=== PATIENT | female | born 1970 | race Caucasian/White ===

== ENCOUNTER 2016-10-03 09:23 | Outpatient (CLI) | payer OTHER ==
--- NOTE | 2016-10-03 21:26 | RAD ---
LEFT KNEE FOUR VIEWS 10/03/16 Comparison is made with a 09/25/16 study. The sunrise view shows a fracture through the medial aspect of the patella. There is very minimal de pression of the medial fragment. Joint fluid is still present but has improved since the prior study . The amount of displacement present is very little. IMPRESSION: Relatively nondisplaced fracture of the patella. POS: HOME
== END 2016-10-03 09:24 | disposition home or self-care (01) ==
LOC: BURRAD 09:23
PROVIDERS: ATTEND Family Medicine
DX: S82.002D Unspecified fracture of left patella, subsequent encounter for closed fracture with routine healing (principal)

== ENCOUNTER 2016-11-20 15:15 | Outpatient (CLI) | payer OTHER ==
[2016-11-20 17:52] LABS: Microalbumin Urine 8.5 mg/dL (0.5-50.0)
== END 2016-11-20 15:16 | disposition home or self-care (01) ==
LOC: HPCALD 15:15
PROVIDERS: ATTEND Family Medicine
DX: E11.9 Type 2 diabetes mellitus without complications (principal)
CPT/HCPCS: 82043

== ENCOUNTER 2017-01-26 09:38 | Emergency (ER) | payer OTHER ==
[2017-01-26] MEDS ORDERED: traMADol HCl 50 MG TAB ONE (11:03)
--- NOTE | 2017-01-26 20:51 | RAD ---
LEFT KNEE 4 VIEWS: Date: 01/26/17 Comparison made with the 10/12/15 study, as well as a 09/25/16 study. FINDINGS: Two of today's views appear to show a vertical line through the medial third of the patella that I p resume to be fracture. The lateral view shows no joint effusion, making it unlikely that this is acu te. Quite honestly, the area is not seen exceptionally well and it may take a MRI or other imaging m odality to prove if there is anything acute here. The lack of joint effusion mitigates against curre nt injury, however. IMPRESSION: Line in the patella that may not be new. See comments above. POS: HOME
== END 2017-01-26 11:06 | disposition home or self-care (01) ==
LOC: BURERS 09:38
DX: S80.02XA Contusion of left knee, initial encounter (principal); S80.01XA Contusion of right knee, initial encounter; E11.9 Type 2 diabetes mellitus without complications; I10 Essential (primary) hypertension; E03.9 Hypothyroidism, unspecified; E78.5 Hyperlipidemia, unspecified; E78.00 Pure hypercholesterolemia, unspecified; J45.909 Unspecified asthma, uncomplicated; F31.9 Bipolar disorder, unspecified; F17.210 Nicotine dependence, cigarettes, uncomplicated; Z79.899 Other long term (current) drug therapy; Z79.84 Long term (current) use of oral hypoglycemic drugs; W01.0XXA Fall on same level from slipping, tripping and stumbling without subsequent striking against object, initial encounter

== ENCOUNTER 2017-04-19 14:19 | Emergency (ER) | payer OTHER ==
[2017-04-19] MEDS ORDERED: Tetracaine HCl 0.5% Ophth Soln 2 ML Bottle ONE (14:28)
[2017-04-19] MEDS ORDERED: Fluorescein Opthalmic Strip ONE (14:28)
== END 2017-04-19 14:45 | disposition home or self-care (01) ==
LOC: BURERS 14:19
DX: H00.014 Hordeolum externum left upper eyelid (principal); Z79.84 Long term (current) use of oral hypoglycemic drugs; Z79.891 Long term (current) use of opiate analgesic; Z79.899 Other long term (current) drug therapy; Z79.2 Long term (current) use of antibiotics
CPT/HCPCS: 36416; 99282

== ENCOUNTER 2017-05-25 11:48 | Emergency (ER) | payer OTHER | END 2017-05-25 12:20 | disposition home or self-care (01) | LOC: BURERS 11:48 | DX: G89.18 Other acute postprocedural pain (principal); M25.562 Pain in left knee; E11.9 Type 2 diabetes mellitus without complications; I10 Essential (primary) hypertension; Z79.899 Other long term (current) drug therapy; Z79.84 Long term (current) use of oral hypoglycemic drugs; Z79.82 Long term (current) use of aspirin | CPT/HCPCS: 99283 ==

== ENCOUNTER 2017-06-16 14:25 | Emergency (ER) | payer OTHER ==
[2017-06-16] MEDS ORDERED: HYDROcodone/Acetaminophen 10/325 mg Tablet ONE (14:46)
--- NOTE | 2017-06-16 17:34 | RAD ---
FOUR VIEWS LEFT KNEE 06/16/17 COMPARISON: 01/26/17 HISTORY: Recent surgery, pain. FINDINGS: Two cannulated lag screws traverse a fracture of the left patella. The inferior screw overlies the f racture lucency. The fracture line is still well seen, extending into the posterior aspect of the pa tella. There is a small knee joint effusion. No dislocation or additional fractures seen. IMPRESSION: Cannulated lag screws associated with left patellar fracture. Nonspecific small knee joint effusion. No additional fracture or evidence of dislocation. POS: [facility]
== END 2017-06-16 15:07 | disposition home or self-care (01) ==
LOC: BURERS 14:25
DX: S81.002A Unspecified open wound, left knee, initial encounter (principal); E11.9 Type 2 diabetes mellitus without complications; E03.9 Hypothyroidism, unspecified; F31.9 Bipolar disorder, unspecified; I10 Essential (primary) hypertension; Z79.84 Long term (current) use of oral hypoglycemic drugs; Z79.899 Other long term (current) drug therapy

== ENCOUNTER 2017-11-18 13:00 | Emergency (ER) | payer OTHER ==
[2017-11-18] MEDS ORDERED: Bacitracin Zinc 1 Packet ONE (13:21)
[2017-11-18] MEDS ORDERED: Fentanyl 100 MCG/2 ML VIAL ONE (13:23)
== END 2017-11-18 13:40 | disposition home or self-care (01) ==
LOC: BURERS 13:00
DX: G89.4 Chronic pain syndrome (principal); M25.562 Pain in left knee; E11.9 Type 2 diabetes mellitus without complications; E03.9 Hypothyroidism, unspecified; I10 Essential (primary) hypertension; J45.909 Unspecified asthma, uncomplicated; F41.9 Anxiety disorder, unspecified; F31.9 Bipolar disorder, unspecified; F17.210 Nicotine dependence, cigarettes, uncomplicated; Z79.899 Other long term (current) drug therapy; Z79.84 Long term (current) use of oral hypoglycemic drugs
CPT/HCPCS: 96372; J3010

== ENCOUNTER 2017-12-05 08:08 | Outpatient (CLI) | payer OTHER ==
--- NOTE | 2017-12-05 22:36 | ULT ---
RIGHT UPPER QUADRANT ULTRASOUND 12/05/17 Ultrasonography of the right upper quadrant was performed for evaluation of abnormal liver function t ests. The liver is slightly large at 16.8 cm in oblique sagittal length. Internally, no masses, or dilated ducts were seen. The gallbladder has been surgically removed. There is no sign of stones or wall thic kening. The common bile duct is 8 mm wide which is normal for a post cholecystectomy patient. The rig ht kidney is 9.7 cm long and appears normal. The pancreas was largely obscured by gas, but the visibl e areas appear normal. IMPRESSION: No acute right upper quadrant findings. Hepatic size is borderline large. POS: HOME
== END 2017-12-05 08:09 | disposition home or self-care (01) ==
LOC: BURULT 08:08
PROVIDERS: ATTEND Family Medicine
DX: R74.8 Abnormal levels of other serum enzymes (principal); R16.0 Hepatomegaly, not elsewhere classified
CPT/HCPCS: 76705

== ENCOUNTER 2017-12-29 09:32 | Emergency (ER) | payer OTHER ==
--- NOTE | 2017-12-29 11:33 | RAD ---
LEFT KNEE 4 VIEWS: DATE: 12/29/17. FINDINGS: Comparison is made with a 06/16 17 study. In the interval, the lower screw that was placed in a patellar fracture has been removed and the lowe r pole of the patella is now retracted inferiorly. There is a small joint effusion today. The dista l femur and proximal tibia/fibula appear intact. Joint space is normal. IMPRESSION: Patient with known prior patellar fracture now with separation of the lower pole of the patella from the remainder and absence of the lower orthopedic screw that was present previously. I assume there has been a procedure between the 2017 study and now. Other than this finding, I see no other acute c hanges, except for a small joint effusion. POS: HOME
== END 2017-12-29 10:43 | disposition home or self-care (01) ==
LOC: BURERS 09:32
DX: M25.561 Pain in right knee (principal); R47.81 Slurred speech; E11.9 Type 2 diabetes mellitus without complications; E03.9 Hypothyroidism, unspecified; I10 Essential (primary) hypertension; J45.909 Unspecified asthma, uncomplicated; F41.9 Anxiety disorder, unspecified; F31.9 Bipolar disorder, unspecified; F17.210 Nicotine dependence, cigarettes, uncomplicated; Z79.84 Long term (current) use of oral hypoglycemic drugs; Z79.899 Other long term (current) drug therapy

== ENCOUNTER 2018-01-09 10:43 | Emergency (ER) | payer OTHER ==
[2018-01-09] MEDS ORDERED: Acetaminophen 500 MG TAB ONE (10:56)
== END 2018-01-09 11:00 | disposition home or self-care (01) ==
LOC: BURERS 10:43
DX: G89.29 Other chronic pain (principal); M25.562 Pain in left knee; E11.9 Type 2 diabetes mellitus without complications; E03.9 Hypothyroidism, unspecified; I10 Essential (primary) hypertension; J45.909 Unspecified asthma, uncomplicated; F41.9 Anxiety disorder, unspecified; F31.9 Bipolar disorder, unspecified; F17.210 Nicotine dependence, cigarettes, uncomplicated
CPT/HCPCS: 99283

== ENCOUNTER 2018-01-12 10:32 | Emergency (ER) | payer OTHER ==
[2018-01-12] MEDS ORDERED: Acetaminophen 500 MG TAB ONE (11:04)
[2018-01-12] MEDS ORDERED: traMADol HCl 50 MG TAB ONE (11:28)
--- NOTE | 2018-01-12 13:09 | RAD ---
SACRUM AND COCCYX: DATE: 01/12/18. FINDINGS: Three views show no evidence of fracture. Arcuate lines of the sacrum appear intact and the SI joint s are symmetrical. The coccyx appears in normal position on the lateral view. IMPRESSION: No acute finding. POS: HOME
== END 2018-01-12 11:42 | disposition home or self-care (01) ==
LOC: BURERS 10:32
DX: S30.0XXA Contusion of lower back and pelvis, initial encounter (principal); E11.9 Type 2 diabetes mellitus without complications; E03.9 Hypothyroidism, unspecified; I10 Essential (primary) hypertension; J45.909 Unspecified asthma, uncomplicated; F41.9 Anxiety disorder, unspecified; F31.9 Bipolar disorder, unspecified; F17.210 Nicotine dependence, cigarettes, uncomplicated; W19.XXXA Unspecified fall, initial encounter
CPT/HCPCS: 72220

== ENCOUNTER 2018-07-07 14:11 | Emergency (ER) | payer OTHER | END 2018-07-07 15:25 | disposition home or self-care (01) | LOC: BURERS 14:11 | DX: G89.29 Other chronic pain (principal); M54.5 Low back pain; E11.9 Type 2 diabetes mellitus without complications; E03.9 Hypothyroidism, unspecified; I10 Essential (primary) hypertension; J45.909 Unspecified asthma, uncomplicated; F41.9 Anxiety disorder, unspecified; F31.9 Bipolar disorder, unspecified; F43.10 Post-traumatic stress disorder, unspecified; F17.210 Nicotine dependence, cigarettes, uncomplicated; Z79.899 Other long term (current) drug therapy; Z79.84 Long term (current) use of oral hypoglycemic drugs | CPT/HCPCS: 99283 ==

== ENCOUNTER 2018-08-03 10:34 | Emergency (ER) | payer OTHER | END 2018-08-03 11:07 | disposition home or self-care (01) | LOC: BURERS 10:34 | DX: K04.7 Periapical abscess without sinus (principal); K02.9 Dental caries, unspecified; E11.9 Type 2 diabetes mellitus without complications; E03.9 Hypothyroidism, unspecified; I10 Essential (primary) hypertension; F31.9 Bipolar disorder, unspecified; J45.909 Unspecified asthma, uncomplicated; F41.9 Anxiety disorder, unspecified; F43.10 Post-traumatic stress disorder, unspecified; F17.210 Nicotine dependence, cigarettes, uncomplicated; Z79.899 Other long term (current) drug therapy; Z79.84 Long term (current) use of oral hypoglycemic drugs | CPT/HCPCS: 99282 ==

== ENCOUNTER 2018-08-18 08:03 | Emergency (ER) | payer OTHER ==
[2018-08-18 09:13] LABS: #Basophils 0.2 thou/uL (0.0-0.2); #Eosinphils 0.2 thou/uL (0.0-0.7); #Lymphocytes 3.9 thou/uL (1.20-3.40); #Monocytes 0.7 thou/uL (0.11-0.59); #Neutrophils 9.9 thou/uL (1.40-6.50); %Basophils 1.5 % (0.0-1.0); %Eosinophils 1.1 % (0.0-10.0); %Lymphocytes 26.5 % (21.0-51.0); %Monocytes 4.5 % (0.0-10.0); %Neutrophils 66.4 % (42.0-75.0); Hemoglobin 12.9 g/dL (12.0-16.0); Mean Corpuscular HGB CONC 33.2 g/dL (32.0-36.0); Mean Corpuscular Hemoglobin 27.1 pg (27.0-31.0); Mean Corpuscular Volume 81.5 fL (78.0-98.0); Mean Platelet Volume 7.8 fL (7.4-10.4); Platelet Count 365 thou/uL (130-400); RBC Distribution Width 11.5 % (11.5-14.5); Red Blood Cell (RBC) Count 4.75 mill/uL (4.20-5.40); White Blood Cell (WBC) Count 14.9 thou/uL (4.8-10.8)
[2018-08-18 09:25] LABS: ALT (SGPT) 25 U/L (8-55); AST (SGOT) 11 U/L (5-34); Albumin 4.5 g/dL (3.5-5.0); Alkaline Phosphatase 153 U/L (40-150); Anion Gap 17 mmol/L (10-20); BUN (Urea Nitrogen) 28 mg/dL (7.0-18.7); Bilirubin, Total 0.2 mg/dL (0.2-1.2); Calc. Creatinine Clearance 0 mL/min (70-130); Calcium 9.5 mg/dL (7.8-10.44); Carbon Dioxide 24 mmol/L (22-29); Chloride 98 mmol/L (98-107); Estimated GFR-MDRD 72; Globulin 3.4 g/dL (2.4-3.5); Glucose 253 mg/dL (70-105); Potassium 4.2 mmol/L (3.5-5.1); Protein, Total 7.9 g/dL (6.0-8.3); Sodium 135 mmol/L (136-145)
[2018-08-18] MEDS ORDERED: Benzonatate 100 MG CAP ONE (09:29)
--- NOTE | 2018-08-18 10:24 | RAD ---
RADIOGRAPH CHEST 2 VIEWS: HISTORY: 47-year-old female with cough and dyspnea. FINDINGS: There is no air space density, pulmonary edema, pleural effusion, pneumothorax, or cardiomegaly. IMPRESSION: No acute cardiopulmonary findings. jn [] POS: [facility]
== END 2018-08-18 09:50 | disposition home or self-care (01) ==
LOC: BURERS 08:03
DX: J06.9 Acute upper respiratory infection, unspecified (principal); J44.1 Chronic obstructive pulmonary disease with (acute) exacerbation; E03.9 Hypothyroidism, unspecified; E11.9 Type 2 diabetes mellitus without complications; I10 Essential (primary) hypertension; F31.9 Bipolar disorder, unspecified; F90.9 Attention-deficit hyperactivity disorder, unspecified type; F41.9 Anxiety disorder, unspecified; F17.210 Nicotine dependence, cigarettes, uncomplicated; Z79.899 Other long term (current) drug therapy; Z79.84 Long term (current) use of oral hypoglycemic drugs
CPT/HCPCS: 71046; 80053; 85025; 93005; 94640; J7620

== ENCOUNTER 2018-10-31 11:21 | Emergency (ER) | payer OTHER ==
[2018-10-31] MEDS ORDERED: Bupivacaine 0.5% 10 ML VIAL ONE (11:36)
== END 2018-10-31 11:50 | disposition home or self-care (01) ==
LOC: BURERS 11:21
DX: K08.89 Other specified disorders of teeth and supporting structures (principal); E11.9 Type 2 diabetes mellitus without complications; E03.9 Hypothyroidism, unspecified; J45.909 Unspecified asthma, uncomplicated; F31.9 Bipolar disorder, unspecified; F43.10 Post-traumatic stress disorder, unspecified; F41.9 Anxiety disorder, unspecified; Z79.899 Other long term (current) drug therapy; Z79.84 Long term (current) use of oral hypoglycemic drugs
CPT/HCPCS: 99282; J3490

== ENCOUNTER 2018-11-18 09:52 | Emergency (ER) | payer OTHER ==
[2018-11-18] MEDS ORDERED: Ibuprofen 200 MG TAB ONE (10:08)
== END 2018-11-18 10:12 | disposition home or self-care (01) ==
LOC: BURERS 09:52
DX: L03.116 Cellulitis of left lower limb (principal); E11.9 Type 2 diabetes mellitus without complications; E03.9 Hypothyroidism, unspecified; I10 Essential (primary) hypertension; F31.9 Bipolar disorder, unspecified; F41.9 Anxiety disorder, unspecified; F43.10 Post-traumatic stress disorder, unspecified; J45.909 Unspecified asthma, uncomplicated; F17.210 Nicotine dependence, cigarettes, uncomplicated; Z79.84 Long term (current) use of oral hypoglycemic drugs; Z79.899 Other long term (current) drug therapy
CPT/HCPCS: 99283

== ENCOUNTER 2018-11-21 10:19 | Emergency (ER) | payer OTHER ==
[2018-11-21] MEDS ORDERED: Ketorolac Tromethamine 30 MG/ML VIAL ONE (11:13)
--- NOTE | 2018-11-21 19:47 | CT ---
CT OF THE LUMBAR SPINE 11/21/[address] of the lumbar spine was performed for evaluation following trauma. No fracture or dislocation was seen at any lumbar level. All bones appeared intact. There is some vac uum phenomenon in the SI joints bilaterally. The sacrum appears intact. There is a diffuse concentric bulb to the L5-S1 disc. No focal herniation was seen. At L4-L5, there i s also a generalized bulge of this disc. It may be a little more focal in the right lateral position. I am unsure if this finding is significant, but if the patient had a right L4 radiculopathy, then th e finding would take on more meaning. IMPRESSION: 1. No evidence of fracture. 2. Diffuse bulge of the L5-S1 disc, present on an older MRI. 3. Diffuse bulging of the L4-L5 disc with question of some right lateral prominence of the disc. If the patient had a right L4 radiculopathy, then other studies (MRI) might be needed to assess if t here is any neural impingement. . POS: HOME
== END 2018-11-21 11:23 | disposition home or self-care (01) ==
LOC: BURERS 10:19
DX: M47.9 Spondylosis, unspecified (principal); E11.9 Type 2 diabetes mellitus without complications; E03.9 Hypothyroidism, unspecified; I10 Essential (primary) hypertension; J45.909 Unspecified asthma, uncomplicated; F41.9 Anxiety disorder, unspecified; F31.9 Bipolar disorder, unspecified; F43.10 Post-traumatic stress disorder, unspecified; F17.210 Nicotine dependence, cigarettes, uncomplicated; Z79.899 Other long term (current) drug therapy; Z79.84 Long term (current) use of oral hypoglycemic drugs; Z79.51 Long term (current) use of inhaled steroids; W17.89XA Other fall from one level to another, initial encounter
CPT/HCPCS: 72131; 96372; J1885

== ENCOUNTER 2019-01-27 15:48 | Emergency (ER) | payer OTHER | END 2019-01-27 16:11 | disposition home or self-care (01) | LOC: BURERS 15:48 | DX: S91.205A Unspecified open wound of left lesser toe(s) with damage to nail, initial encounter (principal); E11.9 Type 2 diabetes mellitus without complications; E03.9 Hypothyroidism, unspecified; I10 Essential (primary) hypertension; J45.909 Unspecified asthma, uncomplicated; F17.210 Nicotine dependence, cigarettes, uncomplicated; F41.9 Anxiety disorder, unspecified; F31.9 Bipolar disorder, unspecified; F43.10 Post-traumatic stress disorder, unspecified; W22.8XXA Striking against or struck by other objects, initial encounter | CPT/HCPCS: 99281 ==

== ENCOUNTER 2019-08-24 12:58 | Emergency (ER) | payer OTHER ==
[2019-08-24] MEDS ORDERED: Acetaminophen/Codeine 30-300mg Tablet ONE (13:43)
--- NOTE | 2019-08-24 18:38 | RAD ---
LEFT ANKLE 3 VIEWS: Date: 08/24/19 There is marked soft tissue swelling. A cortical avulsion is seen at the tip of the lateral malleolus . Additionally, there is avulsion from the medial aspect of the talus, probably where the deltoid lig ament is attached. There may be some tiny cortical avulsions from the posterior part of the talus, bu t this is less sure. IMPRESSION: Cortical avulsions from both the tip of the lateral malleolus and from the medial aspect of the talus . CODE T. POS: HOME
--- NOTE | 2019-08-24 18:38 | RAD ---
LEFT FOOT 3 VIEWS: Date: 08/24/19 Comparison is made with an 08/03/16 study. The old fracture of the fifth metatarsal has healed. No acute fractures were seen in the foot itself. A tiny calcaneal spur was present. IMPRESSION: Old findings, but no acute foot fractures. POS: HOME
== END 2019-08-24 13:45 | disposition home or self-care (01) ==
LOC: BURERS 12:58
DX: S82.62XA Displaced fracture of lateral malleolus of left fibula, initial encounter for closed fracture (principal); S93.402A Sprain of unspecified ligament of left ankle, initial encounter; S93.602A Unspecified sprain of left foot, initial encounter; E11.9 Type 2 diabetes mellitus without complications; E03.9 Hypothyroidism, unspecified; I10 Essential (primary) hypertension; J45.909 Unspecified asthma, uncomplicated; F31.9 Bipolar disorder, unspecified; F41.9 Anxiety disorder, unspecified; F17.210 Nicotine dependence, cigarettes, uncomplicated; Z79.899 Other long term (current) drug therapy; Z79.84 Long term (current) use of oral hypoglycemic drugs; X50.1XXA Overexertion from prolonged static or awkward postures, initial encounter

== ENCOUNTER 2019-11-30 08:25 | Emergency (ER) | payer OTHER | END 2019-11-30 08:47 | disposition home or self-care (01) | LOC: BURERS 08:25 | DX: M25.561 Pain in right knee (principal); W22.8XXA Striking against or struck by other objects, initial encounter | CPT/HCPCS: 99281 ==

== ENCOUNTER 2020-06-01 08:16 | Emergency (ER) | payer OTHER ==
[2020-06-01] MEDS ORDERED: Ketorolac Tromethamine 30 MG/ML VIAL ONE (09:40)
--- NOTE | 2020-06-01 13:06 | RAD ---
RIGHT KNEE 4 VIEWS: DATE: 06/01/2020. FINDINGS: Comparison is made with the 01/24/2017 study. No fracture, dislocation, or joint effusion was seen. The joint space and articular surfaces appear normal. IMPRESSION: No acute findings. POS: HOME
== END 2020-06-01 09:45 | disposition home or self-care (01) ==
LOC: BURERS 08:16
DX: G89.4 Chronic pain syndrome (principal); M25.561 Pain in right knee; S80.212D Abrasion, left knee, subsequent encounter; W01.0XXD Fall on same level from slipping, tripping and stumbling without subsequent striking against object, subsequent encounter
CPT/HCPCS: 96372; J1885

== ENCOUNTER 2020-08-22 13:48 | Emergency (ER) | payer OTHER ==
[2020-08-22] MEDS ORDERED: Cephalexin 250 MG CAP ONE (15:04)
[2020-08-22] MEDS ORDERED: Sulfameth/Trimethoprim DS 800-160mg TAB ONE (15:04)
== END 2020-08-22 15:08 | disposition home or self-care (01) ==
LOC: BURERS 13:48
DX: L03.114 Cellulitis of left upper limb (principal); E11.9 Type 2 diabetes mellitus without complications; I10 Essential (primary) hypertension; F17.210 Nicotine dependence, cigarettes, uncomplicated; Z79.899 Other long term (current) drug therapy; Z79.84 Long term (current) use of oral hypoglycemic drugs
CPT/HCPCS: 99283

== ENCOUNTER 2020-10-04 03:46 | Emergency (ER) | payer OTHER ==
[2020-10-04] MEDS ORDERED: HYDROcodone/Acetaminophen 10/325 mg Tablet ONE (04:07)
[2020-10-04] MEDS ORDERED: AMOXicillin 250 MG CAP ONE (04:08)
== END 2020-10-04 04:15 | disposition home or self-care (01) ==
LOC: BURERS 03:46
DX: K08.89 Other specified disorders of teeth and supporting structures (principal); R51.9 Headache, unspecified; Z79.899 Other long term (current) drug therapy; Z79.84 Long term (current) use of oral hypoglycemic drugs; E11.9 Type 2 diabetes mellitus without complications; J45.909 Unspecified asthma, uncomplicated; I10 Essential (primary) hypertension; E03.9 Hypothyroidism, unspecified; F17.210 Nicotine dependence, cigarettes, uncomplicated
CPT/HCPCS: 99283

== ENCOUNTER 2020-10-29 09:52 | Emergency (ER) | payer OTHER ==
[2020-10-29 10:23] LABS: #Basophils 0.2 thou/uL (0.0-0.2); #Eosinphils 0.3 thou/uL (0.0-0.7); #Lymphocytes 3.5 thou/uL (1.20-3.40); #Monocytes 0.4 thou/uL (0.11-0.59); #Neutrophils 4.6 thou/uL (1.40-6.50); %Basophils 1.9 % (0.0-1.0); %Eosinophils 3.3 % (0.0-10.0); %Lymphocytes 38.8 % (21.0-51.0); %Monocytes 4.8 % (0.0-10.0); %Neutrophils 51.2 % (42.0-75.0); Hemoglobin 16.2 g/dL (12.0-16.0); Mean Corpuscular HGB CONC 31.1 g/dL (32.0-36.0); Mean Corpuscular Hemoglobin 28.7 pg (27.0-31.0); Mean Platelet Volume 9.5 fL (7.4-10.4); Platelet Count 291 thou/uL (130-400); RBC Distribution Width 12.6 % (11.5-14.5); Red Blood Cell (RBC) Count 5.66 mill/uL (4.20-5.40); White Blood Cell (WBC) Count 8.9 thou/uL (4.8-10.8)
[2020-10-29 10:36] LABS: Base Excess-Venous -1.6 mmol/L (-2.0 to 3.0); Bicarbonate (HCO3v) 25.7 mmol/L (22.0-28.0); CO2 Tension (PvCO2) 51.4 mmHg (40.0-50.0); Calcium, Ionized 1.13 mmol/L (1.15-1.33); Chloride 93 mmol/L (98-107); Hemoglobin - Calc 18.3 g/dL (12.0-16.0); Potassium 4.6 mmol/L (3.5-5.1); Sodium 129 mmol/L (138-145); T. Carbon Dioxide 27.3 mmol/L (22.0-28.0); vO2 Saturation-calc 58.8 % (60.0-85.0)
[2020-10-29] MEDS ORDERED: Insulin Regular 300 UNITS/3 ML VIAL ONE (10:36)
[2020-10-29 10:46] LABS: ALT (SGPT) 16 U/L (8-55); AST (SGOT) 8 U/L (5-34); Albumin 4.5 g/dL (3.5-5.0); Alkaline Phosphatase 211 U/L (40-110); Anion Gap 19 mmol/L (10-20); BUN (Urea Nitrogen) 23 mg/dL (7.0-18.7); Bilirubin, Total 0.2 mg/dL (0.2-1.2); Calc. Creatinine Clearance 0 mL/min (70-130); Calcium 9.5 mg/dL (7.8-10.44); Carbon Dioxide 23 mmol/L (22-29); Chloride 91 mmol/L (98-107); Potassium 4.4 mmol/L (3.5-5.1); Protein, Total 7.5 g/dL (6.0-8.3); Sodium 129 mmol/L (136-145)
[2020-10-29 10:52] LABS: Glucose 729 mg/dL (70-105)
[2020-10-29 12:45] LABS: Base Excess-Venous -3.9 mmol/L (-2.0 to 3.0); CO2 Tension (PvCO2) 47.8 mmHg (40.0-50.0); Chloride 102 mmol/L (98-107); Hemoglobin - Calc 15.8 g/dL (12.0-16.0); Sodium 136 mmol/L (138-145); T. Carbon Dioxide 24.5 mmol/L (22.0-28.0); vO2 Saturation-calc 86.8 % (60.0-85.0)
[2020-10-29 12:51] LABS: Anion Gap 15 mmol/L (10-20); BUN (Urea Nitrogen) 20 mg/dL (7.0-18.7); Calc. Creatinine Clearance 0 mL/min (70-130); Calcium 8.6 mg/dL (7.8-10.44); Carbon Dioxide 21 mmol/L (22-29); Chloride 103 mmol/L (98-107); Glucose 342 mg/dL (70-105); Sodium 135 mmol/L (136-145)
--- NOTE | 2020-10-29 16:57 | RAD ---
PORTABLE CHEST: 10/29/20 An AP portable film at 1038 is compared with an 08/18/18 study. The heat is normal in size. There is no vascular congestion, edema or pleural effusion. The lungs are clear. There is a large calcified granuloma in the left lung base which was there previously. There is some faint calcification in the aortic arch. IMPRESSION: No acute thoracic finding. POS: HOME
== END 2020-10-29 13:27 | disposition home or self-care (01) ==
LOC: BURERS 09:52
DX: E11.65 Type 2 diabetes mellitus with hyperglycemia (principal); J45.909 Unspecified asthma, uncomplicated; I10 Essential (primary) hypertension; E03.9 Hypothyroidism, unspecified; F17.210 Nicotine dependence, cigarettes, uncomplicated
CPT/HCPCS: 36415; 36416; 71045; 80053; 82330; 82803; 83605; 84484; 85025; 93005; 96374; J1815

== ENCOUNTER 2020-11-27 12:08 | Observation (INO) | payer OTHER ==
--- NOTE | 2020-11-27 13:01 | RAD ---
EXAM: CHEST ONE VIEW HISTORY: Shortness of breath COMPARISON: 10/29/2020 FINDINGS: The cardiac silhouette and pulmonary vasculature are within normal limits. Calcified granuloma left l candi base is again seen. Lungs are otherwise clear. Chest is stable compared to the prior exam. IMPRESSION: No acute cardiopulmonary process.
[2020-11-27] MEDS ORDERED: Albuterol Sulfate 1.25 MG/3 ML NEB ONE (13:04)
[2020-11-27] MEDS ORDERED: Ipratropium Bromide 2.5 ml Neb ONE ×2 (13:04→13:08)
[2020-11-27] MEDS ORDERED: Albuterol Sulfate 2.5 mg/0.5 ml Neb ONE (13:04)
[2020-11-27] MEDS ORDERED: Magnesium 2 GM/50 ML BAG (IN WATER) ONE (13:18)
[2020-11-27 13:32] LABS: #Basophils 0.2 thou/uL (0.0-0.2); #Eosinphils 0.2 thou/uL (0.0-0.7); #Lymphocytes 3.2 thou/uL (1.20-3.40); #Monocytes 0.4 thou/uL (0.11-0.59); #Neutrophils 4.7 thou/uL (1.40-6.50); %Basophils 2.2 % (0.0-1.0); %Eosinophils 2.2 % (0.0-10.0); %Monocytes 4.7 % (0.0-10.0); %Neutrophils 53.9 % (42.0-75.0); Hemoglobin 14.9 g/dL (12.0-16.0); Mean Corpuscular HGB CONC 31.8 g/dL (32.0-36.0); Mean Corpuscular Hemoglobin 28.2 pg (27.0-31.0); Mean Corpuscular Volume 88.9 fL (78.0-98.0); Mean Platelet Volume 9.3 fL (7.4-10.4); Platelet Count 333 thou/uL (130-400); RBC Distribution Width 12.1 % (11.5-14.5); Red Blood Cell (RBC) Count 5.28 mill/uL (4.20-5.40); White Blood Cell (WBC) Count 8.7 thou/uL (4.8-10.8)
[2020-11-27 13:49] LABS: ALT (SGPT) 21 U/L (8-55); Albumin 4.6 g/dL (3.5-5.0); Alkaline Phosphatase 202 U/L (40-110); Anion Gap 19 mmol/L (10-20); BUN (Urea Nitrogen) 22 mg/dL (9.8-20.1); Bilirubin, Total Less than 0.2 mg/dL (0.2-1.2); Calc. Creatinine Clearance 0 mL/min (70-130); Calcium 9.6 mg/dL (7.8-10.44); Carbon Dioxide 21 mmol/L (22-29); Chloride 94 mmol/L (98-107); Globulin 3.6 g/dL (2.4-3.5); Glucose 508 mg/dL (70-105); Potassium 3.9 mmol/L (3.5-5.1); Protein, Total 8.2 g/dL (6.0-8.3); Sodium 130 mmol/L (136-145)
[2020-11-27 14:08] LABS: AST (SGOT) 10 U/L (5-34)
[2020-11-27] MEDS ORDERED: Insulin Regular 300 UNITS/3 ML VIAL ONE (14:43)
[2020-11-27] MEDS ORDERED: cefTRIAXone\\ROCEPHIN 2 GM VIAL ONE (14:43)
[2020-11-27] MEDS ORDERED: Azithromycin 500 MG VIAL ONE (14:43)
[2020-11-27] MEDS ORDERED: methylPREDNISolone Sod Succ/PF 125 MG/2 ML VIAL ONE (15:16)
[2020-11-27 16:02] LABS: SARS-CoV-2 NAA Rapid Test Not Detected (NotDetected)
[2020-11-27] MEDS ORDERED: Insulin Regular 300 UNITS/3 ML VIAL SC PRN (17:00)
[2020-11-27] MEDS ORDERED: Dextrose 50% Abboject 50 ML SYRINGE IVP PRN ×2 (17:00→21:45)
[2020-11-27] MEDS ORDERED: Ondansetron PF 4 MG/2 ML Vial IVP PRN (17:00)
[2020-11-27] MEDS ORDERED: cefTRIAXone\\ROCEPHIN 2 GM in Sodium Chloride 0.9% 100 ML IVPB SCH ×2 (17:00→20:00)
[2020-11-27] MEDS ORDERED: Ondansetron ODT 4 MG TAB SL PRN (17:00)
[2020-11-27] MEDS ORDERED: Dextrose 5% in Water 1,000 ML IV PRN ×2 (17:00→21:45)
[2020-11-27] MEDS ORDERED: Albuterol Sulfate 2.5 mg/3 ml Neb NEB PRN (17:04)
[2020-11-27] MEDS ORDERED: Bacteriostatic Water 30 ML VIAL FS PRN (17:15)
[2020-11-27] MEDS: Sodium Chloride 0.9% 1,000 ML IV SCH (17:57)
[2020-11-27] MEDS ORDERED: Azithromycin 500 MG in Sodium Chloride 0.9% 250 ML 250 ML IVPB SCH (18:00)
[2020-11-27] MEDS ORDERED: methylPREDNISolone Sod Succ 40 MG VIAL IVP SCH (18:00)
[2020-11-27] MEDS ORDERED: Atorvastatin Calcium 10 MG TAB PO SCH (21:30)
[2020-11-27] MEDS ORDERED: Albuterol 200 PUFF (6.7GM INHALER) INH SCH (21:30)
[2020-11-27] MEDS ORDERED: clonazePAM 0.5 MG TAB PO SCH (21:30)
[2020-11-27] MEDS ORDERED: Gabapentin 300 MG CAP PO SCH (21:30)
[2020-11-27] MEDS ORDERED: OXcarbazepine 150 MG TAB PO SCH (21:45)
[2020-11-27] MEDS ORDERED: Mometasone/Formoterol 200/5 60 PUFF INH SCH (21:45)
[2020-11-27] MEDS ORDERED: cloNIDine 0.1 MG TAB PO SCH (21:45)
[2020-11-27] MEDS ORDERED: Aripiprazole 10 MG TAB PO SCH (21:45)
[2020-11-27] MEDS ORDERED: HumaLOG 300 UNITS/3 ML VIAL SC PRN (21:45)
[2020-11-27] MEDS: methylPREDNISolone Sod Succ 40 MG VIAL IVP SCH (23:02)
[2020-11-28] MEDS: Sodium Chloride 0.9% 1,000 ML IV SCH (01:00)
[2020-11-28 05:23] LABS: #Basophils 0.1 thou/uL (0.0-0.2); #Lymphocytes 1.6 thou/uL (1.20-3.40); #Monocytes 0.2 thou/uL (0.11-0.59); #Neutrophils 7.6 thou/uL (1.40-6.50); %Basophils 0.8 % (0.0-1.0); %Lymphocytes 17.2 % (21.0-51.0); %Monocytes 1.9 % (0.0-10.0); %Neutrophils 80.1 % (42.0-75.0); Hemoglobin 14.1 g/dL (12.0-16.0); Mean Corpuscular HGB CONC 31.9 g/dL (32.0-36.0); Mean Corpuscular Hemoglobin 28.4 pg (27.0-31.0); Mean Platelet Volume 9.9 fL (7.4-10.4); Platelet Count 339 thou/uL (130-400); RBC Distribution Width 12.3 % (11.5-14.5); Red Blood Cell (RBC) Count 4.95 mill/uL (4.20-5.40); White Blood Cell (WBC) Count 9.4 thou/uL (4.8-10.8)
[2020-11-28 05:28] LABS: ALT (SGPT) 20 U/L (8-55); AST (SGOT) 10 U/L (5-34); Alkaline Phosphatase 157 U/L (40-110); Anion Gap 17 mmol/L (10-20); BUN (Urea Nitrogen) 17 mg/dL (9.8-20.1); Bilirubin, Total Less than 0.2 mg/dL (0.2-1.2); Calc. Creatinine Clearance 0 mL/min (70-130); Calcium 8.8 mg/dL (7.8-10.44); Carbon Dioxide 20 mmol/L (22-29); Chloride 103 mmol/L (98-107); Glucose 320 mg/dL (70-105); Potassium 4.7 mmol/L (3.5-5.1); Sodium 135 mmol/L (136-145)
[2020-11-28] MEDS ORDERED: Levothyroxine Sodium 50 MCG TAB PO SCH (06:00)
[2020-11-28] MEDS ORDERED: tiZANidine HCl 4 MG TAB PO PRN (08:53)
[2020-11-28] MEDS ORDERED: Montelukast Sodium 10 mg Tablet PO SCH (09:00)
[2020-11-28] MEDS ORDERED: Lantus 1000 UNITS/10 ML VIAL SC SCH (09:00)
[2020-11-28] MEDS ORDERED: Albuterol 200 PUFF (6.7GM INHALER) INH SCH ×2 (09:00→21:00)
[2020-11-28] MEDS ORDERED: Gabapentin 300 MG CAP PO SCH ×2 (09:00)
[2020-11-28] MEDS ORDERED: PARoxetine 20 MG TAB PO SCH (09:00)
[2020-11-28] MEDS ORDERED: Aripiprazole 10 MG TAB PO SCH ×3 (09:00→21:00)
[2020-11-28] MEDS ORDERED: Mometasone/Formoterol 200/5 60 PUFF INH SCH ×2 (09:00)
[2020-11-28] MEDS ORDERED: Lisinopril 10 MG TAB PO SCH (09:00)
[2020-11-28] MEDS ORDERED: FLU VACC QS2020-21(6MOS UP)/PF 60 MCG/0.5 ML SYRINGE IM ONE (09:00)
[2020-11-28] MEDS: HumaLOG 300 UNITS/3 ML VIAL SC PRN ×2 (09:45→11:56)
[2020-11-28] MEDS: methylPREDNISolone Sod Succ 40 MG VIAL IVP SCH (09:49)
--- NOTE | 2020-11-28 09:53 | PDOC.HHP ---
Hospitalist HPI dyspnea, wheezing History of Present Illness: 50 y/o F chronic smoker with underlying h/o COPD presented to the [facility] ED with c/o dyspnea and wheezing not relieved by home medications. She reported her nebulizer machine to be broken and thus was using her rescue inhaler with frequency; however, did not improve which prompted her ED evaluation. She denies being on a controller medication for her COPD. In the ED she received Solu Medrol, mag sulfate and neb treatments, but remained tachypneic, thus it has be en decided to admit under observation status for further steroids, neb treatments and supplemental oxygen should it be needed. She also had a glucose level of greater than 500 in the ED; she is on basal insulin at 20 units at home; however, states she forgets to take this at times. Allergies/Adverse Reactions: Allergy/AdvReac Type Severity Reaction Status Date / Time celecoxib [From Celebrex] Allergy Mild Verified 11/27/20 18:50 rofecoxib [From Vioxx] Allergy Mild Stomach Verified 11/27/20 18:50 Ache valdecoxib [From Bextra] Allergy Mild Stomach Verified 11/27/20 18:50 Ache Home Medications: Medication Instructions Recorded Confirmed Type Esomeprazole Magnesium [NexIUM] 40 mg PO DAILY 11/03/13 11/27/20 History Gabapentin 600 mg PO TID 11/03/13 11/27/20 History Levothyroxine Sodium [Synthroid] 50 mcg PO DAILY 11/03/13 11/27/20 History Lisinopril 10 mg PO DAILY 11/03/13 11/27/20 History Montelukast Sodium [Singulair] 10 mg PO QAM 11/03/13 11/27/20 History OXcarbazepine [Trileptal] 1,500 mg PO HS 11/03/13 11/27/20 History Ventolin HFA Inhaler 2 puff INH BID 11/03/13 11/27/20 History hydrOXYzine [Atarax] 100 mg PO HS 11/03/13 11/27/20 History ARIPiprazole [Aripiprazole] 1 tab PO HS 05/17/17 11/27/20 History Atorvastatin Calcium [Lipitor] 20 mg PO HS 05/17/17 11/27/20 History Mometasone/Formoterol 200/5 2 puff INH BID 05/17/17 11/27/20 History [Dulera 200 Mcg/5 Mcg Inhaler] PARoxetine HCl 60 mg PO QAM 05/17/17 11/27/20 History metFORMIN [Glucophage] 1,000 mg PO BID-WM 05/17/17 11/27/20 History tiZANidine HCl [Tizanidine HCl] 1 tab PO TID PRN 05/17/17 11/27/20 History clonazePAM 1 tab PO HS 01/22/18 11/27/20 History cloNIDine [Catapres] 0.1 mg PO HS 11/27/20 11/27/20 History Past History: PMx: COPD, HTN, Hypothyroidism, bipolar disorder Surg Hx: splenectomy, cholecystectomy; left knee Social Hx: chronic smoker; denies EtOH or illicit drug use Hospitalist HPI ROS Constitutional: denies: fever, chills, sweats, weakness, malaise, other Eyes: denies: pain, vision change, conjunctivae inflammation, eyelid inflammation, redness, other ENT: denies: ear pain, ear discharge, nose pain, nose discharge, nose congestion, mouth pain, mouth swelling, throat pain, throat swelling, other Respiratory: reports: cough, shortness of breath, SOB with excertion, wheezing. denies: dry, hemoptysis, pleuritic pain, sputum, other Cardiovascular: denies: chest pain, palpitations, orthopnea, paroxysmal noc. dyspnea, edema, light headedness, other Gastrointestinal: denies: nausea, vomiting, abdominal pain, diarrhea, constipation, melena, hematochezia, other Genitourinary: denies: dysuria, frequency, incontinence, hematuria, retention, other Musculoskeletal: denies: neck pain, shoulder pain, arm pain, back pain, hand pain, leg pain, foot pain, other Skin: denies: rash, lesions, quirino, bruising, other Neurological: denies: weakness, numbness, incoordination, change in speech, confusion, seizures, other Hospitalist Exam Vitals: Vital Signs (12 hours) Temp Pulse Resp BP Pulse Ox 11/27/20 16:28 97.8 F 99 18 134/80 95 General Appearance: NAD, awake alert Eye: PERRL, anicteric sclera ENT: normocephalic atraumatic, no oropharyngeal lesions, moist mucosa ENT - other findings: poor dentition Neck: supple, symmetric, no JVD, no lymphadenopathy Heart: RRR, no murmur, normal peripheral pulses Respiratory: rhonchi, wheezes Gastrointestinal: soft, non-tender, non-distended, no guarding Extremities: no cyanosis, no clubbing, no edema Skin: no lesions, no rashes Neurological: cranial nerve grossly intact, no focal deficits Musculoskeletal: normal tone Psychiatric - other findings: pressured speech, tangential Hospitalist Results Result Diagrams: 11/28/20 05:05 11/28/20 05:05 Lab results: Laboratory Last Values WBC 8.7 thou/uL (4.8-10.8) 11/27/20 13:20 RBC 5.28 mill/uL (4.20-5.40) 11/27/20 13:20 Hgb 14.9 g/dL (12.0-16.0) 11/27/20 13:20 Hct 47.0 % (36.0-47.0) 11/27/20 13:20 MCV 88.9 fL (78.0-98.0) 11/27/20 13:20 MCH 28.2 pg (27.0-31.0) 11/27/20 13:20 MCHC 31.8 g/dL (32.0-36.0) L 11/27/20 13:20 RDW 12.1 % (11.5-14.5) 11/27/20 13:20 Plt Count 333 thou/uL (130-400) 11/27/20 13:20 MPV 9.3 fL (7.4-10.4) 11/27/20 13:20 Neutrophils % 53.9 % (42.0-75.0) 11/27/20 13:20 Lymphocytes % 37.0 % (21.0-51.0) 11/27/20 13:20 Monocytes % 4.7 % (0.0-10.0) 11/27/20 13:20 Eosinophils % 2.2 % (0.0-10.0) 11/27/20 13:20 Basophils % 2.2 % (0.0-1.0) H 11/27/20 13:20 Neutrophils # 4.7 thou/uL (1.40-6.50) 11/27/20 13:20 Lymphocytes # 3.2 thou/uL (1.20-3.40) 11/27/20 13:20 Monocytes # 0.4 thou/uL (0.11-0.59) 11/27/20 13:20 Eosinophils # 0.2 thou/uL (0.0-0.7) 11/27/20 13:20 Basophils # 0.2 thou/uL (0.0-0.2) 11/27/20 13:20 D-Dimer Less than 0.27 *mcg/mL (0.27-0.43) L 11/27/20 13:20 Sodium 130 mmol/L (136-145) L 11/27/20 13:20 Potassium 3.9 mmol/L (3.5-5.1) 11/27/20 13:20 Chloride 94 mmol/L (98-107) L 11/27/20 13:20 Carbon Dioxide 21 mmol/L (22-29) L 11/27/20 13:20 Anion Gap 19 mmol/L (10-20) 11/27/20 13:20 BUN 22 mg/dL (9.8-20.1) H 11/27/20 13:20 Creatinine 0.98 mg/dL (0.6-1.1) 11/27/20 13:20 Estimated GFR (MDRD) 60 11/27/20 13:20 Glucose 508 mg/dL (70-105) H 11/27/20 13:20 POC Glucose 483 mg/dL (70-110) H 11/27/20 13:25 Lactic Acid 1.5 mmol/L (0.5-2.2) 11/27/20 13:20 Calcium 9.6 mg/dL (7.8-10.44) 11/27/20 13:20 Total Bilirubin Less than 0.2 mg/dL (0.2-1.2) L 11/27/20 13:20 AST 10 U/L (5-34) 11/27/20 13:20 ALT 21 U/L (8-55) 11/27/20 13:20 Alkaline Phosphatase 202 U/L (40-110) H 11/27/20 13:20 Troponin I 0.011 ng/mL (< 0.028) 11/27/20 13:20 Serum Total Protein 8.2 g/dL (6.0-8.3) 11/27/20 13:20 Albumin 4.6 g/dL (3.5-5.0) 11/27/20 13:20 Globulin 3.6 g/dL (2.4-3.5) H 11/27/20 13:20 Albumin/Globulin Ratio 1.3 g/dL (1.2-2.2) 11/27/20 13:20 Influenza A RNA INAAT Not Detected (NotDetected) 11/27/20 15:10 Influenza B RNA INAAT Not Detected (NotDetected) 11/27/20 15:10 SARS-CoV-2 Rap RNA(RT-PCR) Not Detected (NotDetected) 11/27/20 15:10 Chest x-ray Status: report reviewed by ne Hospitalist H&P A/P (1) COPD exacerbation Code(s): J44.1 - CHRONIC OBSTRUCTIVE PULMONARY DISEASE W (ACUTE) EXACERBATION Status: Acute (2) Type 2 diabetes mellitus with hyperglycemia Code(s): E11.65 - TYPE 2 DIABETES MELLITUS WITH HYPERGLYCEMIA Status: Acute (3) Hyponatremia Code(s): E87.1 - HYPO-OSMOLALITY AND HYPONATREMIA Status: Acute (4) Dyslipidemia Code(s): E78.5 - HYPERLIPIDEMIA, UNSPECIFIED Status: Chronic (5) Hypertension Code(s): I10 - ESSENTIAL (PRIMARY) HYPERTENSION Status: Chronic (6) Hypothyroidism Code(s): E03.9 - HYPOTHYROIDISM, UNSPECIFIED Status: Chronic (7) Tobacco abuse Code(s): Z72.0 - TOBACCO USE Status: Chronic Plan: Pt admitted overnight for obs due to COPD exacerbation and hyperglycemia. Will continue IV solumedrol, IVF's, monitor vitals and repeat labs in AM.
--- NOTE | 2020-11-28 10:27 | DIS ---
DATE OF OBS ADMISSION: 11/27/2020 DATE OF OBS DISCHARGE: 11/28/2020 ADMISSION DIAGNOSES: COPD exacerbation, type 2 diabetes mellitus with hyperglycemia, hyponatremia. SECONDARY DIAGNOSES: Dyslipidemia, hypertension, hypothyroidism, and tobacco abuse. PROCEDURES: On 11/27/2020, chest x-ray shows no acute cardiopulmonary process. HOSPITAL COURSE: A 50-year-old female, who presented acutely to the [facility] Emergency Department with complaints of progressive shortness of breath, not relieved with her rescue inhaler. She is a chronic smoker with underlying COPD and has not been on a controller medication and also reported that her nebulizer machine was broken. In the emergency department, she received IV Solu-Medrol, azithromycin, Rocephin, magnesium sulfate, and DuoNeb treatments; however, her respiratory status did not improve sufficiently as she remained tachypneic with wheezing, and thus, it was decided to admit for observation status overnight. In addition to this, her labs were abnormal in regard to elevated glucose reading of 508 and sodium level of 130. The patient does have insulin-dependent diabetes mellitus; however, reports to miss taking her Lantus dosing on occasion. Due to this and her respiratory status, she was admitted for further IV Solu-Medrol, IV fluids, insulin management, and supplemental oxygen as indicated. Overnight, she had no significant setbacks and as of this morning, she does show improvement overall. She is currently stable on room air and no longer tachypneic. She does feel sufficient to be able to return home at this time. She has been provided education on the need for medication compliance in regard to her insulin regimen. She will further be provided Dulera as a controller medication for her COPD, along with p.o. azithromycin and p.o. prednisone. She has also been counseled on the importance of smoking cessation in regard to her underlying diagnosis. DISPOSITION: The patient will be discharged to her home setting and follow up with Dr. Gore in one week as advised. DISCHARGE MEDICATIONS: Include: 1. Albuterol sulfate inhaler 2 puffs inhaled q.6 hours p.r.n. 2. Abilify 20 mg at bedtime. 3. Atorvastatin 20 mg at bedtime. 4. Clonazepam 0.5 mg at bedtime. 5. Clonidine 0.1 mg for blood pressures greater than 160/100. 6. Gabapentin 300 mg p.o. t.i.d. 7. Hydroxyzine 100 mg at bedtime. 8. Lantus will be increased from 20 units daily to 30 units daily. 9. Levothyroxine 50 mcg daily. 10. Lisinopril 10 mg daily. 11. Metformin 1000 mg b.i.d. 12. Dulera 200 mcg/5 mcg inhaler 2 puffs inhaled b.i.d. 13. Singulair 10 mg daily. 14. Trileptal 1500 mg at bedtime. 15. Pantoprazole 40 mg daily. 16. Paroxetine 60 mg daily. 17. Tizanidine 4 mg q.8 hours p.r.n. 18. Azithromycin 250 mg p.o. daily x5 days. 19. Prednisone 20 mg p.o. daily x5 days. Total time spent in preparation of discharge of this patient greater than 30 minutes. Job ID: [id number] [id number]
[2020-11-28 11:39] VITALS: TEMP 98.6
[2020-11-28 12:04] VITALS: BP 136/85
[2020-11-28 14:13] LABS: Hemoglobin A1c Greater than 14.0 % (4.0-6.0)
[2020-11-28] MEDS ORDERED: Azithromycin 500 MG in Sodium Chloride 0.9% 250 ML 250 ML IVPB SCH (15:00)
[2020-11-28] MEDS ORDERED: cefTRIAXone\\ROCEPHIN 2 GM in Sodium Chloride 0.9% 100 ML IVPB SCH (16:00)
[2020-11-28] MEDS ORDERED: metFORMIN 500 MG TAB PO SCH (17:00)
[2020-11-28] MEDS ORDERED: clonazePAM 0.5 MG TAB PO SCH ×2 (21:00)
[2020-11-28] MEDS ORDERED: Atorvastatin Calcium 10 MG TAB PO SCH ×2 (21:00)
[2020-11-28] MEDS ORDERED: cloNIDine 0.1 MG TAB PO SCH ×2 (21:00)
[2020-11-28] MEDS ORDERED: hydrOXYzine 25 MG TAB PO SCH ×2 (21:00)
[2020-11-28] MEDS ORDERED: OXcarbazepine 150 MG TAB PO SCH ×2 (21:00)
[2020-11-29] MEDS ORDERED: Levothyroxine Sodium 50 MCG TAB PO SCH (06:00)
== END 2020-11-28 13:00 | disposition home or self-care (01) ==
LOC: BURERS 12:08 → INTOOBSV 14:55 → BURMED 14:55
PROVIDERS: ADMIT Family Medicine; ATTEND Family Medicine
DX: J44.1 Chronic obstructive pulmonary disease with (acute) exacerbation (principal); E11.65 Type 2 diabetes mellitus with hyperglycemia; E87.1 Hypo-osmolality and hyponatremia; F17.210 Nicotine dependence, cigarettes, uncomplicated; I10 Essential (primary) hypertension; E78.5 Hyperlipidemia, unspecified; F41.9 Anxiety disorder, unspecified; F31.9 Bipolar disorder, unspecified; E03.9 Hypothyroidism, unspecified; Z79.4 Long term (current) use of insulin; Z79.899 Other long term (current) drug therapy; Z88.6 Allergy status to analgesic agent; Z20.822 Contact with and (suspected) exposure to COVID-19
CPT/HCPCS: 0240U; 36415; 36416; 71045; 80053; 83036; 83605; 84484; 85025; 85379; 87040; 87804; 90471; 90662; 93005; 94640; 94760; 96365; 96367; 96375; G0008; G0378; J0456; J0696; J1815; J2920; J2930; J3475; J7611; J7620

== ENCOUNTER 2021-01-19 11:04 | Outpatient (CLI) | payer OTHER | END 2021-01-19 11:05 | disposition home or self-care (01) | LOC: BURRAD 11:04 | PROVIDERS: ATTEND Family Medicine | DX: M54.5 Low back pain (principal); M25.551 Pain in right hip; G89.29 Other chronic pain; K59.00 Constipation, unspecified | CPT/HCPCS: 72110 ==

== ENCOUNTER 2021-03-18 06:33 | Emergency (ER) | payer OTHER ==
[2021-03-18 07:29] LABS: #Basophils 0.2 thou/uL (0.0-0.2); #Eosinphils 0.3 thou/uL (0.0-0.7); #Lymphocytes 2.3 thou/uL (1.20-3.40); #Monocytes 0.5 thou/uL (0.11-0.59); #Neutrophils 7.7 thou/uL (1.40-6.50); %Basophils 1.6 % (0.0-1.0); %Lymphocytes 21.1 % (21.0-51.0); %Monocytes 4.3 % (0.0-10.0); Hemoglobin 11.9 g/dL (12.0-16.0); Mean Corpuscular HGB CONC 32.3 g/dL (32.0-36.0); Mean Corpuscular Hemoglobin 29.1 pg (27.0-31.0); Mean Corpuscular Volume 90.1 fL (78.0-98.0); Mean Platelet Volume 7.8 fL (7.4-10.4); Platelet Count 328 thou/uL (130-400); RBC Distribution Width 12.9 % (11.5-14.5); Red Blood Cell (RBC) Count 4.09 mill/uL (4.20-5.40); White Blood Cell (WBC) Count 10.9 thou/uL (4.8-10.8)
[2021-03-18 07:42] LABS: ALT (SGPT) 141 U/L (8-55); AST (SGOT) 144 U/L (5-34); Albumin 3.8 g/dL (3.5-5.0); Alkaline Phosphatase 250 U/L (40-110); Anion Gap 17 mmol/L (10-20); BUN (Urea Nitrogen) 30 mg/dL (9.8-20.1); Bilirubin, Total 0.3 mg/dL (0.2-1.2); Calc. Creatinine Clearance 0 mL/min (70-130); Calcium 10.1 mg/dL (7.8-10.44); Carbon Dioxide 27 mmol/L (22-29); Chloride 99 mmol/L (98-107); Globulin 3.4 g/dL (2.4-3.5); Glucose 230 mg/dL (70-105); Potassium 4.6 mmol/L (3.5-5.1); Protein, Total 7.2 g/dL (6.0-8.3); Sodium 138 mmol/L (136-145)
[2021-03-18] MEDS ORDERED: Morphine 4 MG/ML VIAL ONE (08:03)
== END 2021-03-18 08:54 | disposition home or self-care (01) ==
LOC: BURERS 06:33
DX: G89.18 Other acute postprocedural pain (principal); M54.5 Low back pain; E11.9 Type 2 diabetes mellitus without complications; I10 Essential (primary) hypertension; E03.9 Hypothyroidism, unspecified; J45.909 Unspecified asthma, uncomplicated; F17.210 Nicotine dependence, cigarettes, uncomplicated; Z79.899 Other long term (current) drug therapy; Z98.1 Arthrodesis status
CPT/HCPCS: 36415; 72131; 80053; 85025; 85610; 96372; J2270

== ENCOUNTER 2021-04-08 10:15 | Emergency (ER) | payer OTHER ==
[2021-04-08] MEDS ORDERED: Fentanyl 100 MCG/2 ML VIAL ONE (11:15)
[2021-04-08] MEDS ORDERED: Dexamethasone 4 MG TAB ONE (11:15)
== END 2021-04-08 11:27 | disposition home or self-care (01) ==
LOC: BURERS 10:15
DX: G89.18 Other acute postprocedural pain (principal); G89.29 Other chronic pain; M54.5 Low back pain; E11.9 Type 2 diabetes mellitus without complications; E03.9 Hypothyroidism, unspecified; I10 Essential (primary) hypertension; J45.909 Unspecified asthma, uncomplicated; F17.210 Nicotine dependence, cigarettes, uncomplicated; Z79.899 Other long term (current) drug therapy; Z79.84 Long term (current) use of oral hypoglycemic drugs
CPT/HCPCS: 96372; 99283; J3010; J8540

== ENCOUNTER 2021-04-13 13:34 | Emergency (ER) | payer OTHER ==
[2021-04-13] MEDS ORDERED: Morphine 4 MG/ML VIAL ONE (14:26)
[2021-04-13] MEDS ORDERED: Morphine 2 MG/ML VIAL ONE (14:26)
[2021-04-13 15:04] LABS: Hemoglobin 13.1 g/dL (12.0-16.0); Mean Corpuscular Hemoglobin 29.2 pg (27.0-31.0); Mean Corpuscular Volume 91.2 fL (78.0-98.0); Platelet Count 358 thou/uL (130-400); RBC Distribution Width 12.9 % (11.5-14.5); Red Blood Cell (RBC) Count 4.48 mill/uL (4.20-5.40); White Blood Cell (WBC) Count 9.1 thou/uL (4.8-10.8)
[2021-04-13 15:07] LABS: INR-International Normal Ratio 0.9; Prothrombin Time 12.1 sec (12.0-14.7)
[2021-04-13 15:15] LABS: ALT (SGPT) 21 U/L (8-55); AST (SGOT) 11 U/L (5-34); Albumin 4.2 g/dL (3.5-5.0); Alkaline Phosphatase 181 U/L (40-110); Anion Gap 16 mmol/L (10-20); BUN (Urea Nitrogen) 20 mg/dL (9.8-20.1); Bilirubin, Total Less than 0.2 mg/dL (0.2-1.2); Calc. Creatinine Clearance 0 mL/min (70-130); Calcium 9.9 mg/dL (7.8-10.44); Carbon Dioxide 26 mmol/L (22-29); Chloride 97 mmol/L (98-107); Globulin 3.1 g/dL (2.4-3.5); Glucose 306 mg/dL (70-105); Potassium 3.9 mmol/L (3.5-5.1); Protein, Total 7.3 g/dL (6.0-8.3); Sodium 135 mmol/L (136-145)
[2021-04-13 15:32] LABS: Band 3 % (5-11); Eosinophils 9 % (0-10); Lymphocytes 42 % (21-51); MDiff Complete? YES; Monocytes 9 % (0-10); Neutrophil 35 % (42-75); Reactive Lymphocytes 1 % (0-10)
== END 2021-04-13 15:40 | disposition home or self-care (01) ==
LOC: BURERS 13:34
DX: G89.29 Other chronic pain (principal); M54.5 Low back pain; E11.9 Type 2 diabetes mellitus without complications; E03.9 Hypothyroidism, unspecified; I10 Essential (primary) hypertension; J45.909 Unspecified asthma, uncomplicated; F17.210 Nicotine dependence, cigarettes, uncomplicated; Z79.899 Other long term (current) drug therapy; Z79.84 Long term (current) use of oral hypoglycemic drugs
CPT/HCPCS: 36415; 72131; 80053; 85025; 85610; 96372; J2270

== ENCOUNTER 2021-05-24 15:34 | Outpatient (CLI) | payer OTHER | END 2021-05-24 15:35 | disposition home or self-care (01) | LOC: BURRAD 15:34 | PROVIDERS: ATTEND Neurological Surgery | DX: M54.5 Low back pain (principal) | CPT/HCPCS: 72100 ==

== ENCOUNTER 2021-07-17 10:46 | Emergency (ER) | payer OTHER | END 2021-07-17 11:47 | disposition home or self-care (01) | LOC: BURERS 10:46 | DX: S92.511A Displaced fracture of proximal phalanx of right lesser toe(s), initial encounter for closed fracture (principal); E11.9 Type 2 diabetes mellitus without complications; E03.9 Hypothyroidism, unspecified; I10 Essential (primary) hypertension; J45.909 Unspecified asthma, uncomplicated; F17.210 Nicotine dependence, cigarettes, uncomplicated; W22.8XXA Striking against or struck by other objects, initial encounter; Y92.009 Unspecified place in unspecified non-institutional (private) residence as the place of occurrence of the external cause ==

== ENCOUNTER 2021-08-15 11:27 | Emergency (ER) | payer OTHER ==
[2021-08-15] MEDS ORDERED: Ondansetron PF 4 MG/2 ML Vial ONE (12:31)
[2021-08-15] MEDS ORDERED: Morphine 4 MG/ML VIAL ONE (12:31)
[2021-08-15] MEDS ORDERED: Pantoprazole 40 MG VIAL ONE ×2 (12:31→14:50)
[2021-08-15 12:49] LABS: ALT (SGPT) 73 U/L (8-55); AST (SGOT) 13 U/L (5-34); Albumin 3.9 g/dL (3.5-5.0); Alkaline Phosphatase 144 U/L (40-110); Anion Gap 18 mmol/L (10-20); BUN (Urea Nitrogen) 28 mg/dL (9.8-20.1); Bilirubin, Total 0.3 mg/dL (0.2-1.2); Calc. Creatinine Clearance 0 mL/min (70-130); Calcium 9.8 mg/dL (7.8-10.44); Carbon Dioxide 23 mmol/L (22-29); Chloride 92 mmol/L (98-107); Globulin 3.1 g/dL (2.4-3.5); Glucose 183 mg/dL (70-105); Hemoglobin 13.8 g/dL (12.0-16.0); Lipase 12 U/L (8-78); Mean Corpuscular HGB CONC 33.4 g/dL (32.0-36.0); Mean Corpuscular Hemoglobin 28.6 pg (27.0-31.0); Mean Corpuscular Volume 85.8 fL (78.0-98.0); Mean Platelet Volume 9.1 fL (7.4-10.4); Platelet Count 273 thou/uL (130-400); Potassium 3.8 mmol/L (3.5-5.1); RBC Distribution Width 13.1 % (11.5-14.5); Red Blood Cell (RBC) Count 4.82 mill/uL (4.20-5.40); Sodium 129 mmol/L (136-145); White Blood Cell (WBC) Count 21.1 thou/uL (4.8-10.8)
[2021-08-15] MEDS ORDERED: Iopamidol 370 76% 100 ML VIAL ONE (13:10)
[2021-08-15 13:11] LABS: Band 6 % (5-11); Lymphocytes 5 % (21-51); MDiff Complete? YES; Monocytes 6 % (0-10); Neutrophil 81 % (42-75); Reactive Lymphocytes 2 % (0-10)
[2021-08-15] MEDS ORDERED: Ciprofloxacin Lactate/D5W 400 mg/200 ml Premix ONE (14:17)
[2021-08-15] MEDS ORDERED: metroNIDAZOLE 500 MG/100 ML BAG ONE (14:26)
[2021-08-15 14:44] LABS: Bilirubin Negative (Negative); Blood, Urine Trace (Negative); Clarity Clear (Clear); Glucose, Urine (Dipstick) Negative (Negative); Ketone, Urine Negative (Negative); Leukocyte Negative (Negative); Nitrite Positive (Negative); Protein, Urine (Dipstick) Negative (Neg-Trace); Urobilinogen 0.2 mg/dL (Less than 2); pH, Urine 5.5 (5.0-9.0)
[2021-08-15 14:50] LABS: Specific Gravity, Urine Greater than 1.030 (1.002-1.036)
[2021-08-15 15:02] LABS: Bacteria/HPF 2+ HPF (None Seen); RBC/HPF 0-3 HPF (0-3); Transitional Epithelial 0-3 HPF (None Seen)
== END 2021-08-15 15:12 | disposition home or self-care (01) ==
LOC: BURERS 11:27
DX: K92.2 Gastrointestinal hemorrhage, unspecified (principal); E87.1 Hypo-osmolality and hyponatremia; K52.9 Noninfective gastroenteritis and colitis, unspecified; E03.9 Hypothyroidism, unspecified; I10 Essential (primary) hypertension; J45.909 Unspecified asthma, uncomplicated; F17.210 Nicotine dependence, cigarettes, uncomplicated
CPT/HCPCS: 74177; 80053; 81003; 81015; 82274; 83605; 83690; 84484; 85025; 87040; 87077; 87086; 87149; 87186; 93005; 96365; 96368; 96375; C9113; J0744; J2270; J2405; Q9967

== ENCOUNTER 2021-10-21 07:13 | Emergency (ER) | payer OTHER | END 2021-10-21 07:51 | disposition home or self-care (01) | LOC: BURERS 07:13 | DX: F15.20 Other stimulant dependence, uncomplicated (principal); E11.9 Type 2 diabetes mellitus without complications; E03.9 Hypothyroidism, unspecified; I10 Essential (primary) hypertension; J45.909 Unspecified asthma, uncomplicated; F17.290 Nicotine dependence, other tobacco product, uncomplicated | CPT/HCPCS: 99284 ==

== ENCOUNTER 2022-01-05 16:01 | Emergency (ER) | payer OTHER ==
[2022-01-05] MEDS ORDERED: Lorazepam 2 MG/ML VIAL ONE (17:31)
== END 2022-01-05 17:58 ==
LOC: BURERS 16:01
DX: F15.10 Other stimulant abuse, uncomplicated (principal); F41.9 Anxiety disorder, unspecified; E11.9 Type 2 diabetes mellitus without complications; E03.9 Hypothyroidism, unspecified; I10 Essential (primary) hypertension; F17.210 Nicotine dependence, cigarettes, uncomplicated; Z79.899 Other long term (current) drug therapy; Z79.84 Long term (current) use of oral hypoglycemic drugs
CPT/HCPCS: 71046; 93005; 96372; J2060; J7620

== ENCOUNTER 2022-01-20 12:31 | Emergency (ER) | payer OTHER ==
[2022-01-20] MEDS ORDERED: Lorazepam 2 MG/ML VIAL SLOW IVP ONE (12:32)
[2022-01-20] MEDS ORDERED: methylPREDNISolone Sod Succ/PF 125 MG/2 ML VIAL ONE (13:18)
[2022-01-20] MEDS ORDERED: Albuterol Sulfate 2.5 mg/0.5 ml Neb ONE (13:24)
[2022-01-20 15:45] LABS: ALT (SGPT) 19 U/L (8-55); AST (SGOT) 12 U/L (5-34); Alkaline Phosphatase 130 U/L (40-110); Anion Gap 15 mmol/L (10-20); BUN (Urea Nitrogen) 21 mg/dL (9.8-20.1); Bilirubin, Total 0.2 mg/dL (0.2-1.2); Calc. Creatinine Clearance 0 mL/min (70-130); Calcium 8.5 mg/dL (7.8-10.44); Carbon Dioxide 22 mmol/L (22-29); Chloride 101 mmol/L (98-107); Globulin 2.8 g/dL (2.4-3.5); Glucose 184 mg/dL (70-105); Potassium 4.6 mmol/L (3.5-5.1); Protein, Total 6.8 g/dL (6.0-8.3); Sodium 133 mmol/L (136-145)
[2022-01-20 15:46] LABS: #Basophils 0.2 thou/uL (0.0-0.2); #Lymphocytes 0.9 thou/uL (1.20-3.40); #Monocytes 0.4 thou/uL (0.11-0.59); #Neutrophils 17.1 thou/uL (1.40-6.50); %Basophils 1.3 % (0.0-1.0); %Lymphocytes 4.6 % (21.0-51.0); %Monocytes 2.1 % (0.0-10.0); %Neutrophils 91.9 % (42.0-75.0); Hemoglobin 11.2 g/dL (12.0-16.0); Mean Corpuscular HGB CONC 32.6 g/dL (32.0-36.0); Mean Corpuscular Hemoglobin 29.1 pg (27.0-31.0); Mean Corpuscular Volume 89.4 fL (78.0-98.0); Mean Platelet Volume 8.6 fL (7.4-10.4); Platelet Count 318 thou/uL (130-400); RBC Distribution Width 14.2 % (11.5-14.5); Red Blood Cell (RBC) Count 3.83 mill/uL (4.20-5.40); White Blood Cell (WBC) Count 18.6 thou/uL (4.8-10.8)
[2022-01-20] MEDS ORDERED: cefTRIAXone\\ROCEPHIN 1 GM VIAL ONE (15:59)
[2022-01-20] MEDS ORDERED: Sodium Chloride 0.9% 100 ML ONE (15:59)
[2022-01-20 18:55] LABS: Lactic Acid 3.1 mmol/L (0.5-2.2)
[2022-01-21 00:17] LABS: SARS-CoV-2 NAA Rapid Test Not Detected (NotDetected)
== END 2022-01-20 21:10 | disposition short-term general hospital (02) ==
LOC: BURERS 12:31
DX: J18.9 Pneumonia, unspecified organism (principal); F41.9 Anxiety disorder, unspecified; F15.10 Other stimulant abuse, uncomplicated; I10 Essential (primary) hypertension; E11.9 Type 2 diabetes mellitus without complications; E03.9 Hypothyroidism, unspecified; J45.909 Unspecified asthma, uncomplicated; F17.210 Nicotine dependence, cigarettes, uncomplicated; Z20.822 Contact with and (suspected) exposure to COVID-19; Z79.84 Long term (current) use of oral hypoglycemic drugs; Z79.51 Long term (current) use of inhaled steroids; Z79.899 Other long term (current) drug therapy
CPT/HCPCS: 36415; 71045; 80053; 83605; 83880; 84484; 85025; 87040; 93005; 94760; 96374; 96375; J0696; J2060; J2930; J3490; J7611; J7620; U0002

== ENCOUNTER 2022-09-07 08:45 | Emergency (ER) | payer OTHER ==
[2022-09-07] MEDS ORDERED: cefTRIAXone\\ROCEPHIN 2 GM VIAL ONE (09:29)
[2022-09-07] MEDS ORDERED: Azithromycin 500 MG VIAL ONE (09:29)
[2022-09-07] MEDS ORDERED: Sodium Chloride 0.9% 100 ML ONE (09:30)
[2022-09-07 09:45] LABS: #Basophils 0.2 thou/uL (0.0-0.2); #Eosinphils 0.2 thou/uL (0.0-0.7); #Monocytes 0.4 thou/uL (0.11-0.59); #Neutrophils 9.5 thou/uL (1.40-6.50); %Basophils 1.3 % (0.0-1.0); %Eosinophils 1.3 % (0.0-10.0); %Lymphocytes 16.7 % (21.0-51.0); %Monocytes 3.2 % (0.0-10.0); %Neutrophils 77.5 % (42.0-75.0); Hemoglobin 13.4 g/dL (12.0-16.0); Mean Corpuscular HGB CONC 33.4 g/dL (32.0-36.0); Mean Corpuscular Volume 86.8 fl (78.0-98.0); Mean Platelet Volume 8.2 fL (7.4-10.4); Platelet Count 389 10x3/uL (130-400); RBC Distribution Width 12.5 % (11.5-14.5); Red Blood Cell (RBC) Count 4.62 mill/uL (4.20-5.40); White Blood Cell (WBC) Count 12.2 10x3/uL (4.8-10.8)
[2022-09-07 10:04] LABS: ALT (SGPT) 21 U/L (8-55); AST (SGOT) 12 U/L (5-34); Albumin 4.5 g/dL (3.5-5.0); Alkaline Phosphatase 136 U/L (40-110); Anion Gap 14 mmol/L (10-20); BUN (Urea Nitrogen) 22 mg/dL (9.8-20.1); Bilirubin, Total 0.2 mg/dL (0.2-1.2); CK (CPK) 78 U/L (29-168); Calc. Creatinine Clearance 0 mL/min (70-130); Calcium 9.3 mg/dL (7.8-10.44); Carbon Dioxide 25 mmol/L (22-29); Chloride 100 mmol/L (98-107); Estimated GFR 91; Globulin 2.9 g/dL (2.4-3.5); Glucose 180 mg/dL (70-105); Potassium 4.8 mmol/L (3.5-5.1); Protein, Total 7.4 g/dL (6.0-8.3); Sodium 134 mmol/L (136-145)
[2022-09-07 10:23] LABS: SARS-CoV-2 NAA Rapid Test Not Detected (NotDetected)
[2022-09-07] MEDS ORDERED: Iopamidol 370 76% 100 ML VIAL ONE (10:50)
[2022-09-07] MEDS ORDERED: Albuterol Sulfate 1.25 MG/3 ML NEB ONE (10:52)
== END 2022-09-07 12:10 | disposition home or self-care (01) ==
LOC: BURERS 08:45
DX: J45.901 Unspecified asthma with (acute) exacerbation (principal); E11.9 Type 2 diabetes mellitus without complications; E03.9 Hypothyroidism, unspecified; I10 Essential (primary) hypertension; F17.210 Nicotine dependence, cigarettes, uncomplicated; Z20.822 Contact with and (suspected) exposure to COVID-19
CPT/HCPCS: 36415; 71045; 71275; 80053; 82550; 83605; 84484; 85025; 87040; 93005; 94640; 96365; 96367; J0456; J0696; J3490; J7620; Q9967

== ENCOUNTER 2022-12-14 12:38 | Emergency (ER) | payer OTHER ==
[2022-12-14] MEDS ORDERED: Ipratropium/Albuterol 3 ML NEB ONE (12:50)
[2022-12-14] MEDS ORDERED: Doxycycline 100 MG CAP ONE (13:02)
[2022-12-14] MEDS ORDERED: methylPREDNISolone Sod Succ/PF 125 MG/2 ML VIAL ONE (13:03)
[2022-12-14] MEDS ORDERED: Albuterol 2.5 MG/0.5 ML NEB ONE (13:03)
[2022-12-14 13:10] LABS: #Basophils 0.2 thou/uL (0.0-0.2); #Eosinphils 0.3 thou/uL (0.0-0.7); #Monocytes 0.6 thou/uL (0.11-0.59); %Basophils 1.6 % (0.0-1.0); %Eosinophils 2.7 % (0.0-10.0); %Lymphocytes 24.6 % (21.0-51.0); %Monocytes 4.6 % (0.0-10.0); %Neutrophils 66.5 % (42.0-75.0); Hemoglobin 13.2 g/dL (12.0-16.0); Mean Corpuscular HGB CONC 33.2 g/dL (32.0-36.0); Mean Corpuscular Hemoglobin 28.1 pg (27.0-31.0); Mean Corpuscular Volume 84.6 fl (78.0-98.0); Mean Platelet Volume 9.1 fL (7.4-10.4); Platelet Count 352 10x3/uL (130-400); RBC Distribution Width 13.1 % (11.5-14.5); White Blood Cell (WBC) Count 12.1 10x3/uL (4.8-10.8)
[2022-12-14 13:25] LABS: ALT (SGPT) 21 U/L (8-55); AST (SGOT) 11 U/L (5-34); Alkaline Phosphatase 126 U/L (40-110); Anion Gap 17 mmol/L (10-20); BUN (Urea Nitrogen) 38 mg/dL (9.8-20.1); Bilirubin, Total Less than 0.2 mg/dL (0.2-1.2); Calc. Creatinine Clearance 0 mL/min (70-130); Calcium 8.9 mg/dL (7.8-10.44); Carbon Dioxide 23 mmol/L (22-29); Chloride 95 mmol/L (98-107); Estimated GFR 42; Globulin 3.2 g/dL (2.4-3.5); Glucose 231 mg/dL (70-105); Potassium 4.4 mmol/L (3.5-5.1); Protein, Total 7.2 g/dL (6.0-8.3); Sodium 131 mmol/L (136-145)
[2022-12-14 14:50] LABS: SARS-CoV-2 NAA Rapid Test Not Detected (NotDetected)
== END 2022-12-14 15:00 | disposition short-term general hospital (02) ==
LOC: BURERS 12:38
DX: J44.1 Chronic obstructive pulmonary disease with (acute) exacerbation (principal); Z20.822 Contact with and (suspected) exposure to COVID-19; E11.9 Type 2 diabetes mellitus without complications; E03.9 Hypothyroidism, unspecified; I10 Essential (primary) hypertension; J44.9 Chronic obstructive pulmonary disease, unspecified; F17.210 Nicotine dependence, cigarettes, uncomplicated
CPT/HCPCS: 36415; 71045; 80053; 83880; 84484; 85025; 93005; 96374; J2930; J7611; J7620; U0002